=== PATIENT | male | born 1990 | race American Indian/Alaskan Native ===

== ENCOUNTER 2024-09-09 15:33 | Emergency (ER) | payer OTHER, SELFPAY ==
[2024-09-09 15:35] VITALS: BP 115/75; PULSE 81; RESP 16; TEMP 36.7; O2SAT 100; BMI 32.9
[2024-09-09 15:40] VITALS: PULSE 84; RESP 18; O2SAT 100; BMI 31.9
--- NOTE | 2024-09-09 16:14 | XR_ITS ---
Examination: CT brain head without contrast. 2-D sagittal coronal reconstructions Date and time of exam:September 09, 2024 1638 hrs. Indications: Syncope right-sided head pain today CTDI: vol (mGy):55.8 DLP: (mGycm):1156 Technique: Multiple CT axial sections of the brain have been obtained, 5 mm slice thickness. Contrast has not been administered. 2-D sagittal, coronal reconstructions have been obtained Low dose protocols were performed. One or more of the following dose reduction techniques were used; automated exposure control, adjustment of the mA and/or KV according to patient size, use of 1156 iterative reconstruction technique. Findings: No significant ventricular enlargement. Intra-axial or extra-axial hemorrhage density is not seen. No mass effect or midline shift Basal cisterns are not remarkable. Fourth ventricle is midline. Cranial vault intact. Impression: Negative for acute hemorrhage, mass effect or midline shift Advise clinical correlation and follow-up accordingly
--- NOTE | 2024-09-09 16:14 | EKG_ITS ---
[facility] Test Date: 2024-09-09 Pat Name: MICHELLE BAILEY Department: Room: - Gender: Male [employer] Editor: : 1990 Requested By: John Paul Bass Order Number: [id number] Reading MD: John Paul Bass Measurements Intervals [place] Rate: 75 P: -27 SD: 166 QRS: 18 QRSD: 101 T: 49 QT: 341 QTc: 382 Interpretive Statements SINUS RHYTHM Compared to ECG 11/14/2023 17:31:23 No significant changes /store/S0/[id number].pdf
--- NOTE | 2024-09-09 16:18 | EDNOTE_ITS ---
ED General RME/HPI General Chief complaint: Syncope / Near Syncope Stated complaint: SYNCOPE Time Seen by Provider: 09/09/24 16:08 Arrival date/time: 09/09/24 15:33 CC: Syncope, fall, itchy and red skin to the face and upper chest, headache. HPI patient had itchy skin and a mild allergic action reaction as interpreted by the patient after eating shellfish, the patient then became lightheaded dizzy and had a syncopal event on the commode, after which the assisted him into standing when the patient lost his balance and fell again striking his head against a soap that she in the shower. EMS reports stable vital signs. The patient is noted to continue to have red itchy skin to his face and upper neck without any hives. Patient is awake alert oriented nontoxic-appearing not in any acute distress with no other specific complaints other than a headache. Related Data Home Medications ?Medication ?Instructions ?Recorded ?Confirmed hydrochlorothiazide 25 mg tablet 25 mg PO QDAY 4 12/29/23 losartan 100 mg tablet 100 mg PO QDAY 12/29/2312/10 Previous Rx's ?Medication ?Instructions ?Recorded hydrocodone 5 mg-acetaminophen 325 1 tab PO Q6H PRN pa in (scale score 03/11/22 mg tablet 7-10) #20 tabs docusate sodium 100 mg capsule 100 mg PO BID #40 caps 12/30/23 (Colace) hydrocodone 5 mg-acetaminophen 325 1 tab PO Q6H PRN pa in (scale score 12/30/23 mg tablet 7-10) #20 tabs ibuprofen 600 mg tablet 600 mg PO Q8H PRN pain (scal e 12/30/23 score 4-6) #15 tabs Allergies Allergy/AdvReac Type Severity Reaction Status Date / Time No Known Allergies Allergy Verified 12/30/23 11:44 Review of Systems Review of Systems Narrative Review of Systems: GEN: No fever, no chills, no weight loss EYES: No discharge, no visual changes, no pain HEENT: No ear pain, no congestion, no sore throat PULM: No shortness of breath, no cough, no congestion CV: No chest pain, no dyspnea on exertion, no palpitations GI: No nausea, no vomiting, no diarrhea, no pain, no constipation : No frequency, no urgency, no dysuria MUSC/SKEL: No joint pain, no back pain SKIN: No rash PSYCH: No hallucinations, no depression HEME/LYMPH: No easy bleeding or bruising tendencies NEURO: No weakness, no headache Past Medical History Past Medical History NEUROLOGIC: Negative Neurological Disorders or Seizures CARDIAC: Positive Cardiac Disorders and Hypertension; Negative Congestive Heart Failure RESPIRATORY: Negative Chronic Obstructive Pulmonary Disease (COPD) GASTROINTESTINAL: Positive Gastrointestinal Disorders and Gall Bladder Disease GENITOURINARY: Negative Genitourinary Disorders or Renal Disease MUSCULOSKELETAL: Negative Musculoskeletal Disorders ENDOCRINE: Negative Endocrine Disorders, Diabetes Mellitus Type 1 or Diabetes Mellitus Type 2 HEMATOLOGIC: Negative Blood Disorders OTHER HISTORY: Negative Hospitalization, Autoimmune Disease, Falls, Blood Transfusions, Blood Transfusion Reaction, Anesthesia Reactions or Chicken Pox Family History FAMILY HISTORY: Negative Family Respiratory Disorders, Family Cardiac Disorders or Family Gastrointestinal Problems Surgical History SURGICAL: Positive Gastric Bypass Surgery (Gastric sleeve) and Vasectomy Social History SMOKING STATUS: Former smoker ED Exam Narrative Physical exam: [General: In mild discomfort but not in any acute distress Head small edematous area to the right parietal along with a small hematoma to the left frontal scalp just above the eyebrow. No other induration ulceration crepitus or depression HEENT: Eyes: Pupils are PERRLA EOMs are intact mouth pink moist membranes uvula is midline swallow symmetrical phonation is normal. All other subsystems of HEENT are within acceptable limits Neck is supple nontender, no stridor with auscultation. Swallow symmetrical no JVD no edema. Full range of motion lateral rotation flexion and extension. Chest equal chest rise nontender to palpation Respiratory: Clear to auscultation no wheezes crackles or rubs CV: Rate rhythm is regular no murmurs rubs or clicks Abdomen is distended secondary to body habitus soft nontender no masses positive bowel sounds all 4 quadrants Back: No CVA tenderness no spinous process tenderness from cervical spine thoracic and lumbar spine Skin: Erythema to the base of the neck the face including the parietal scalp. No hives. No bulla. Otherwise skin is intact no petechiae rash induration ulceration or crepitus Extremities: Moving all extremity against resistance cap refill less than 2 seconds neurosensory intact Neuro: Awake alert oriented x3 Glascow coma 15 no focal deficits] Course Quality Measures none Orders Category Date Time Status EKG (ED ONLY) *Do not use* NOW Care 09/09/24 16:[address] head/brain wo con Stat Exams 09/09/24 16:14 Completed EKG (ED Only) Stat Exams 09/09/24 16:14 Draft CBC Stat Lab 09/09/24 16:19 Completed CMP [Comprehensive Metabolic Panel] Stat Lab 09/09/24 16:19 Completed Acetaminophen Ivpb [Ofirmev Inj] Med 09/09/24 16:14 Discontinued 1,000 mg in 100 ml IV NOW DiphenhydrAMINE INJ [Benadryl Inj] Med 09/09/24 16:14 Discontinued 25 mg IVP X1 ONE Vital Signs Vital signs: Vital Signs Temperature 98.0 F 09/09/24 15:35 Pulse Rate 81 09/09/24 15:35 Respiratory Rate 16 09/09/24 15:35 Blood Pressure 115/75 09/09/24 15:35 Pulse Oximetry (%) 100 09/09/24 15:35 Oxygen Delivery Method Room Air 09/09/24 15:35 [facility] Patient data External records reviewed:: [facility] previous records and EMS form Clinical information provided by:: patient and EMS Social determinants that could affect healthcare access:: none Patient has the following chronic illnesses:: Hypertension How is presenting disease/condition affected by chronic disease/condition?: u neffected by Evaluation data The following diagnostics were reviewed and interpreted by me:: lab results and radiology exam(s) Lab and/or radiology exams considered but not ordered:: EKG performed at 1643 shows a ventricular rate of 75 ID interval of 166 QRS of 101 QTc of 370 this is sinus rhythm. CT head is negative for any acute finding requires emergent or immediate intervention as interpreted by me and read by radiology CBC shows no leukocytosis H&H of 12.7 and 38.0 normal platelets CMP shows no acute electrolyte imbalances BUN of 26 creatinine of 0.9 no transaminitis or T. bili elevation. Interpretation Summary: I suspect the patient had a mild reaction possibly to the seafood as he says he had it before, this resulted in a syncope. Patient has had no deterioration in neurologic status throughout his visit the emergency room. Vital signs are stable the patient is mildly dehydrated himself comfortable discharging the patient home to follow-up with the PCP. Medications Medications considered but not ordered:: None Medication administrations:: Medication Administration History Discontinued Medications Diphenhydramine HCl (Diphenhydramine Inj 50 Mg/Ml Vial) 25 mg IVP X1 ONE Stop: 09/09/24 16:15 Last Admin: 09/09/24 16:25 Dose: 25 mg Documented By: HORTENCIA Acetaminophen (Ofirmev Inj) 1,000 mg in 100 mls @ 250 mls/hr IV NOW ONE Stop: 09/09/24 16:37 Last Infusion: 09/09/24 17:15 Dose: Infused Documented By: Admin: 09/09/24 16:27 Dose: 250 mls/hr Documented By: HORTENCIA None Consultations Consultation(s) initiated? (list below): No Diagnosis Differential Diagnosis ED Complaint MDM: Allergic reaction syncope contact dermatitis Most likely diagnosis given after review of the tests above:: Allergic reaction syncope Admission Indicated Admission indicated?: not indicated Explain why admission is indicated or not indicated:: Stable for outpatient follow-up Admission Request Was there a request for admission?: No Disposition Plan Disposition Plan: Discharge Discharge Attestation Discharge Attestation: The patient and all family members were given an opportunity to ask questions and understood the discharge instructions. Discharge instructions specifically effects, indications for sooner follow up or return to the emergency department, and the expected course of current diagnosis. Patient condition: Stable Medical Decision Making Differential Diagnosis Differential Diagnosis: Allergic reaction syncope contact dermatitis Lab Data 09/09/24 16:19 09/09/24 16:19 Labs: Lab Results 09/09/24 Range/Units 16:19 WBC 6.8 (3.8-10.6) Thou/mm3 RBC 4.44 L (4.50-5.90) Miln/mm3 Hgb 12.7 L (13.5-16.0) g/dL Hct 38.0 L (41.0-53.0) % MCV 86 (80-100) fL MCH 28.6 (25.0-35.0) pg MCHC 33.4 (31.0-37.0) g/dl RDW Std Deviation 41.8 (35.1-43.9) fL Plt Count 158 (140-440) Thou/mm3 Neut % (Auto) 72 (37-80) % Lymph % (Auto) 25 (10-50) % [place] % (Auto) 2 (0-12) % Eos % (Auto) 0 (0-10) % Baso % (Auto) 0 (0-2.5) % Neut # (Auto) 4.9 (1.8-7.7) Thou/mm3 Lymph # (Auto) 1.7 (1.0-4.8) Thou/mm3 [place] # (Auto) 0.1 (0.0-0.8) Thou/mm3 Eos # (Auto) 0.0 (0.0-0.5) Thou/mm3 Baso # (Auto) 0.0 (0.0-0.2) Thou/mm3 Immature Gran # (Auto) 0.02 H (0.00-0.00) Thou/mm3 Absolute Nucleated RBC 0.00 (0.00-0.00) Thou/mm3 Immature Gran % 0 (0-0) % Nucleated RBC % 0 (0) /100 WBC Sodium 145 (136-145) mMol/L Potassium 3.4 (3.4-5.1) mMol/L Chloride 107 (98-107) mMol/L Carbon Dioxide 28.1 (20.0-31.0) mMol/L Anion Gap 10 (7-16) BUN 26 H (9-23) mg/dL Creatinine 0.9 (0.6-1.3) mg/dL Estim Creat Clear Calc 123.1 (>60) mL/min eGFR > 60 (60 - ) See Note BUN/Creatinine Ratio 29 H (12-20) Ratio Glucose 117 H (74-106) mg/dL Calculated Osmolality 294 (275-295) Calcium 9.0 (8.3-10.6) mg/dL Corrected Calcium 9.0 (8.5-10.1) mg/dL Total Bilirubin 0.5 (0.3-1.2) mg/dL AST 20 (0-34) U/L ALT 15 (10-49) U/L Alkaline Phosphatase 82 (46-116) U/L Total Protein 6.5 (5.7-8.2) gm/dL Albumin 4.0 (3.5-5.0) gm/dL Globulin 2.5 (2.3-3.5) gm/dL Albumin/Globulin Ratio 1.6 (1.2-2.2) Discharge Plan Plan Patient Disposition: HOME (Self Care) Patient condition on transfer: Stable Prescriptions/Referrals Prescriptions/Med Rec: No Action hydrocodone-acetaminophen 5-325 mg tablet 1 tab PO Q6H MDD 4 PRN (Reason: pain (scale score 7-10)) Qty: 20 0RF hydrochlorothiazide 25 mg Tablet 25 mg PO QDAY losartan 100 mg Tablet 100 mg PO QDAY docusate sodium [Colace] 100 mg capsule 100 mg PO BID Qty: 40 0RF ibuprofen 600 mg tablet 600 mg PO Q8H PRN (Reason: pain (scale score 4-6)) Qty: 15 0RF hydrocodone-acetaminophen 5-325 mg tablet 1 tab PO Q6H MDD 4 PRN (Reason: pain (scale score 7-10)) Qty: 20 0RF Referrals: Chidi Sol MD [Primary Care Provider] - In 1 week Problem List Clinical Impression: Syncope, Allergic reaction Patient/Caregiver Discharge Instructions Education Materials: ED Food Allergy, ED Fainting, Uncertain Cause Additional Instructions: Rest, drink 8-10 large glasses of water every day for the next 3 days take Benadryl for the next 24 hours 25 mg every 8 hours. Avoid seafood in the future. Print Language: [place]ralt[place] Stand Alone Forms: Sherry Award Info., Work/School Release, Patient Portal Info Letter PA/CARDIOLOGY CONSULTANT Supervising Physician CARTER/FLAVIA Supervising Physician: John Paul Barr ENP
[2024-09-09] MEDS: DiphenhydrAMINE INJ 50 MG/ML VIAL 25 MG IVP (16:25)
[2024-09-09] MEDS: ACETAMINOPHEN IVPB 1,000 MG/100 ML VIAL 250 MG IV (16:27)
[2024-09-09 16:40] LABS: Basophils % (Auto) 0 % (0-2.5); Eosinophils % (Auto) 0 % (0-10); Hemoglobin 12.7 g/dL (13.5-16.0); Immature Granulocytes % (Auto) 0 % (0-0); Immature Granulocytes Auto 0.02 Thou/mm3 (0.00-0.00); Lymphocytes # (Auto) 1.7 Thou/mm3 (1.0-4.8); Lymphocytes % (Auto) 25 % (10-50); Mean Corpuscular HGB Conc 33.4 g/dl (31.0-37.0); Mean Corpuscular Hemoglobin 28.6 pg (25.0-35.0); Mean Corpuscular Volume 86 fL (80-100); Monocytes # (Auto) 0.1 Thou/mm3 (0.0-0.8); Monocytes % (Auto) 2 % (0-12); Neutrophils # (Auto) 4.9 Thou/mm3 (1.8-7.7); Neutrophils % (Auto) 72 % (37-80); Nucleated Red Blood Cell % 0 /100 WBC (0); Platelet Count 158 Thou/mm3 (140-440); RDW Standard Deviation 41.8 fL (35.1-43.9); Red Blood Count 4.44 Miln/mm3 (4.50-5.90); White Blood Count 6.8 Thou/mm3 (3.8-10.6)
[2024-09-09 16:57] LABS: Alanine Aminotransferase 15 U/L (10-49); Albumin/Globulin Ratio 1.6 (1.2-2.2); Alkaline Phosphatase 82 U/L (46-116); Anion Gap 10 (7-16); Aspartate Amino Transferase 20 U/L (0-34); BUN/Creatinine Ratio 29 Ratio (12-20); Bilirubin,Total 0.5 mg/dL (0.3-1.2); Blood Urea Nitrogen 26 mg/dL (9-23); Carbon Dioxide 28.1 mMol/L (20.0-31.0); Chloride 107 mMol/L (98-107); Creatinine (Component) 0.9 mg/dL (0.6-1.3); Estimated Creatinine Clearance 123.1 mL/min (>60); Globulin 2.5 gm/dL (2.3-3.5); Glucose 117 mg/dL (74-106); Osmolality,Calculated 294 (275-295); Potassium 3.4 mMol/L (3.4-5.1); Sodium 145 mMol/L (136-145); Total Protein 6.5 gm/dL (5.7-8.2); eGFR > 60 See Note
[2024-09-09 17:24] VITALS: BP 118/79; PULSE 72; RESP 18; TEMP 36.7; O2SAT 97
== END 2024-09-09 19:13 | disposition home or self-care (01) ==
PROVIDERS: Registered Nurse General Practice; Emergency Provider Emergency Medicine; PCP Family Medicine
DX: R55 Syncope and collapse (principal); T78.40XA Allergy, unspecified, initial encounter; R51.9 Headache, unspecified
CPT/HCPCS: 36415; 70450; 80053; 85025; 93005; 96365; 96375; 99284; J0131; J1200